=== PATIENT | male | born 1930 | race Caucasian/White ===

== ENCOUNTER 2019-08-28 14:50 | Emergency (ER) | payer MEDICARE, OTHER ==
--- OUTSIDE RECORDS SUMMARY | 2019-08-28 15:10 | XMS REPORT | Continuity of Care Document ---
:1930 External Reference #:[id number] Author Name Sacha Acosta M.D. Address [address] [place] [address] Care Team Providers Name Role Phone Kalyn Matamoros N.P. - Nurse Care Team Information Teacher Instrumental [phone] Practitioner Problems Active Problems Provider Date Essential hypertension Onset: Osteoarthritis Onset: Type 2 diabetes mellitus Sacha Acosta M.D. Onset: 05/09/2015 Note: Dx 2006 Primary open angle glaucoma Sacha Acosta M.D. Onset: 05/24/2015 Herpes simplex disciform keratitis Sacha Acosta M.D. Onset: 05/24/2015 Moderate Glaucoma Sacha Aocsta M.D. Onset: 05/24/2015 Pseudophakia Sacha Acosta M.D. Onset: 05/24/2015 Blepharitis Laurence Starr O.D. Onset: 11/03/2016 Superficial punctate keratitis Laurence Starr O.D. Onset: 11/10/2016 Bilateral primary open angle glaucoma Sacha Acosta M.D. Onset: 02/01/2017 Social History Type Date Description Comments Sex Unknown ETOH Use Denies alcohol use Tobacco Use Start: Unknown Patient has never smoked Recreational Drug Use Denies Drug Use Smoking Status Reviewed: 07/24/19 Patient has never smoked Allergies, Adverse Reactions, Alerts Active Allergies Reaction Severity Comments Date Tetanus 05/09/2015 Medications Active Medications SIG Qnty Indications Ordering Provider Date Timolol Maleate 1 drop both eyes 15units Laurence Starr, 05/08/2015 0.5% every day O.D. Solution Lisinopril Dennis Terrell M.D. 20mg Tablets Metoprolol Tartrate Dennis Terrell M.D. 50mg Tablets Atorvastatin Calcium Unknown 10mg Tablets Metformin HCL Unknown 1000mg Tablets Nitrostat Dennis Terrell M.D. 0.4mg Tablets Sub Aspirin Adult Low Unknown Dose 81mg Tablets DR Vitamin D every day Unknown 2000Unit Tablets Acyclovir take 1 capsule 60caps Sacha Acosta, 200mg by mouth twice a M.D. Capsules day Immunizations Description No Information Available Vital Signs Date Vital Result Comment 05/30/2018 3:41pm BP Systolic 138 mmHg BP Diastolic 62 mmHg Heart Rate 60 /min Respiratory Rate 16 /min Results Description No Information Available Procedures Description No Information Available Medical Devices Description No Information Available Encounters Description No Information Available Assessments Date Code Description Provider 07/24/2019 H40.1132 Primary open-angle glaucoma, bilateral, Sacha Acosta M.D. moderate stage 07/24/2019 Z96.1 Presence of intraocular lens Sacha Acosta M.D. 07/24/2019 E11.9 Type 2 diabetes mellitus without Sacha Acosta M.D. 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 Plan of Treatment 07/24/2019 - Sacha Acosta M.D.H40.1132 Primary open-angle glaucoma, bilateral, moderate stageComments:Smoking can increase the risk of developing or worsening any eye related disease, as well as affect your overall health. If you are a smoker, we strongly recommend that you quit.If you are not a smoker , we strongly recommend that you do not start. Your glaucoma is stable at this time.Your eye pressure is within an acceptable range, and your testing does not show any further deterioration at this time. Please continue your treatment.Follow up:6 Month Follow Up IOP Check At your next visit, we are not planning to dilate your eyes. However, if you have any changes in your vision or new symptoms, there are certain situations that require us to dilate your eyes. If Dr. Acosta requests any additional testing, that may require extra time. If you have any questions before your next appointment, please call our office at .Z96.1 Presence of intraocular lensComments:The artificial lens implants in both eyes appear to be stable at this time.E11.9 Type 2 diabetes mellitus without complicationsComments:You have diabetes. I do not detect any changes in both of your retinas from diabetes at this time. Proper control of your diabetes is important for the health of your eyes. Changes in your eyes from diabetes can happen without symptoms, so it is important that you have your eyes examined. Dr. 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
[2019-08-28] MEDS ORDERED: Oxymetazoline 0.05% NASAL SPR* 15 ML BTL LEFT NARE ONE (17:01)
[2019-08-28] MEDS ORDERED: Lidocaine 2% JELLY* 10 ML JELLY TOPICAL ONE (17:30)
[2019-08-28] MEDS ORDERED: Tranexamic Acid 1,000 MG/10 ML SDV TOPICAL ONE (17:32)
[2019-08-28] MEDS ORDERED: Lidocaine 2% JELLY* 6 ML JELLY TOPICAL ONE (18:08)
[2019-08-28] MEDS ORDERED: Silver Nitrate/Potassium Nitr* 1 EA STICK TOPICAL ONE (18:15)
--- NOTE | 2019-08-28 19:03 | ED ---
Throat Pain/Nasal Congestion - HPI Summary HPI Summary: 88-year-old male presents with epistaxis for the past couple hours. He states that his left nostril has been bleeding. He started applying pressure but has not stopped. He states he had a nose bleed on wednesday. he is on a daily aspirin for cardio preventative therapy. denies any fevers. no other symptoms. states had nosebleed many years ago. - History of Current Complaint Chief Complaint: EDEpistaxis Time Seen by Provider: 08/28/19 16:51 - Allergies/Home Medications Allergies/Adverse Reactions: Allergies Allergy/AdvReac Type Severity Reaction Status Date / Time MS Horse-derived Products Allergy Unknown Unknown Verified 07/04/13 14:31 [Horse-derived Products] Reaction Details PMH/Surg Hx/FS Hx/Imm Hx Endocrine/Hematology History: Reports: Hx Diabetes Denies: Hx Anticoagulant Therapy Musculoskeletal History: Reports: Hx Arthritis Sensory History: Reports: Hx Contacts or Glasses, Hx Deafness Opthamlomology History: Reports: Hx Contacts or Glasses - Surgical History Surgery Procedure, Year, and Place: tonsilectomy/adnoidectomy-11yrs of age Infectious Disease History: No Infectious Disease History: Denies: Traveled Outside the [place] in Last 30 Days - Social History Alcohol Use: None Substance Use Type: Reports: None Smoking Status (MU): Never Smoked Tobacco Review of Systems Negative: Fever Positive: Epistaxis Negative: Chest Pain Negative: Shortness Of Breath All Other Systems Reviewed And Are Negative: Yes Physical Exam Triage Information Reviewed: Yes Vital Signs On Initial Exam: Initial Vitals Temp Pulse Resp BP Pulse Ox 97.8 F 90 18 179/104 99 08/28/19 14:52 08/28/19 14:52 08/28/19 14:52 08/28/19 14:52 08/28/19 14:52 Vital Signs Reviewed: Yes Appearance: Positive: Well-Appearing Skin: Positive: Warm, Dry Head/Face: Positive: Normal Head/Face Inspection Eyes: Positive: Normal, EOMI, JEANE, Conjunctiva Clear ENT: Positive: Pharynx normal, TMs normal, Other - bleeding left nares Respiratory/Lung Sounds: Positive: Clear to Auscultation, Breath Sounds Present Cardiovascular: Positive: Normal, RRR Musculoskeletal: Positive: Normal Neurological: Positive: Normal Psychiatric: Positive: Normal Diagnostics - Vital Signs Vital Signs Temp Pulse Resp BP Pulse Ox 08/28/19 14:52 97.8 F 90 18 179/104 99 - Laboratory Lab Statement: Any lab studies that have been ordered have been reviewed, and results considered in the medical decision making process. Re-Evaluation - Re-Evaluation First Eval Change: Unchanged Comment: still bleeding, will get lidocaine and txa Second Eval Change: Improved Comment: bleeding stopped Third Eval Change: Improved Comment: cauterized area with no rebeeding EENT Course/Dx - Course Course Of Treatment: 88-year-old male presents with epistaxis for the past couple hours. He states that his left nostril has been bleeding. He started applying pressure but has not stopped. He states he had a nose bleed on wednesday. he is on a daily aspirin for cardio preventative therapy. denies any fevers. no other symptoms. states had nosebleed many years ago. on exam has clot in left nostril. removed clot. applied afrin and nasal clamp the bleeding slowed but continued. applied some lidocaine and bleeding stopped. was able to cauterize area. patient ambulated without bleeding returning. patient understands agrees with plan. - Differential Diagnoses Differential Diagnoses: Epistaxis, Sinusitis, URI/Bronchitis - Diagnoses Provider Diagnoses: Epistaxis Discharge ED - Sign-Out/Discharge Documenting (check all that apply): Patient Departure Patient Received Moderate/Deep Sedation with Procedure: No - Discharge Plan Condition: Good Disposition: HOME Patient Education Materials: Nosebleed (ED) Referrals: Cade Valenzuela MD [Primary Care Provider] - Mathieu Salinas MD [Medical Doctor] - Additional Instructions: stop aspirin for next 4 days Apply nasal saline to nose follow up with ENT if continue to get nose bleeds Return to ED if area continues to bleed or any new or worsening symptoms - Billing Disposition and Condition Condition: GOOD Disposition: Home
[2019-08-28 19:37] VITALS: BP 182/90
== END 2019-08-28 19:25 | disposition home or self-care (01) ==
LOC: ED 14:50
DX: R04.0 Epistaxis (principal); Z79.82 Long term (current) use of aspirin; E11.9 Type 2 diabetes mellitus without complications
CPT/HCPCS: 99282; A9270-GY